=== PATIENT | female | born 1995 | race Two or more races ===

== ENCOUNTER 2024-03-02 04:46 | Emergency (ER) | payer MEDICAID, OTHER ==
[~2024-03-02] VITALS: Ht 160 cm; Wt 102.2 kg
[2024-03-02] MEDS: levETIRAcetam 500 MG TAB PO ONE (06:54)
[2024-03-02] MEDS: KETOROLAC TROMETH 60MG/2ML VIAL IM ONE (07:34)
[2024-03-02] MEDS ORDERED: IBUP-1456 PO (07:45)
[2024-03-02 08:04] VITALS: BP 134/74; PULSE 63; RESP 18; TEMP 97.9; O2SAT 99
== END 2024-03-02 07:54 | disposition home or self-care (01) ==
LOC: EDBD 04:46 → ER 04:46
DX: S42.92XA Fracture of left shoulder girdle, part unspecified, initial encounter for closed fracture (principal); S43.015A Anterior dislocation of left humerus, initial encounter; G40.909 Epilepsy, unspecified, not intractable, without status epilepticus; Z79.1 Long term (current) use of non-steroidal anti-inflammatories (NSAID); Z88.6 Allergy status to analgesic agent; W18.39XA Other fall on same level, initial encounter; Y93.89 Activity, other specified; Y92.89 Other specified places as the place of occurrence of the external cause; Y99.8 Other external cause status
CPT/HCPCS: 23650; 73020; 73030; 99285; J1885